=== PATIENT | male | born 1965 | race Caucasian/White ===

== ENCOUNTER 2017-04-05 20:54 | Emergency (ER) | payer OTHER ==
[2017-04-05 21:01] VITALS: BP 130/81
--- NOTE | 2017-04-05 22:01 | RAD ---
INDICATION: Left hip injury. COMPARISON: Comparison is made with a prior x-ray study of the left femur from June 14, 2015. TECHNIQUE: An AP view of the pelvis and frontal and lateral views of the left hip were obtained. FINDINGS: There are old fractures of the inferior pubic rami on both sides. No acute fracture is seen. 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 IMPRESSION: NO EVIDENCE FOR ACUTE FRACTURE, IF THE PATIENT'S SYMPTOMS PERSIST RECOMMEND FOLLOW-UP IMAGING.
--- NOTE | 2017-04-05 22:04 | RAD ---
INDICATION: Sacrococcygeal injury. COMPARISON: There are no prior studies available for comparison. TECHNIQUE: 3 views of the sacrococcygeal spine were obtained. FINDINGS: The vertebra are in normal alignment. No fracture is seen. There are old fractures of the right superior pubic ramus and both inferior pubic rami. IMPRESSION: NO EVIDENCE OF ACUTE FRACTURE.
[2017-04-05] MEDS ORDERED: HYDROcodone/ACETAMIN 5-325 MG* 1 TAB PO ONE (22:14)
--- NOTE | 2017-04-05 22:24 | UC ---
Hip/Pelvis Pain - HPI Summary HPI Summary: History of pelvic fracture and surgical repair. HAS BEEN VERY ACTIVE, HIT LEFT HIP HAS HAD RECURRING PAIN WORSE AT NIGHT. DOES NOT CURRENTLY HAVE ORTHOPEDIC DOCTOR. WOULD LIKE REFERRAL. - History Of Current Complaint Chief Complaint: UCLowerExtremity Stated Complaint: HIP/LOWER BACK PAIN Time Seen by Provider: 04/05/17 21:07 Hx Obtained From: Patient Onset/Duration: Gradual Onset, Lasting Days, Still Present Timing: Constant Severity Initially: Severe Severity Currently: Moderate Location: Discrete At: - LEFT HIP ,TAILBONE Character Of Pain: Dull, Aching Aggravating Factor(s): Movement Alleviating Factor(s): Nothing Associated Signs And Symptoms: Positive: Negative - Risk Factors Septic Arthritis Risk Factor: Negative - Allergies/Home Medications Allergies/Adverse Reactions: Allergies Allergy/AdvReac Type Severity Reaction Status Date / Time Bupropion [From Wellbutrin] Allergy Altered Verified 04/05/17 21:01 Mental Status PMH/Surg Hx/FS Hx/Imm Hx Previously Healthy: Yes - Surgical History Surgical History: Yes Surgery Procedure, Year, and Place: eye surgery - Social History Occupation: Employed Full-time Lives: With Family Alcohol Use: Occasionally Substance Use Type: None Smoking Status (MU): Heavy Every Day Tobacco Smoker Type: Cigarettes Household Exposure Type: Cigarettes - Immunization History Most Recent Influenza Vaccination: may 2015 Most Recent Tetanus Shot: may 2015 Most Recent Pneumonia Vaccination: unknown Review of Systems Constitutional: Negative Skin: Negative Eyes: Negative ENT: Negative Respiratory: Negative Cardiovascular: Negative Gastrointestinal: Negative Genitourinary: Negative Motor: Negative Neurovascular: Negative Musculoskeletal: Arthralgia, Myalgia Neurological: Negative Psychological: Negative All Other Systems Reviewed And Are Negative: Yes Physical Exam Triage Information Reviewed: Yes Appearance: Well-Appearing, No Pain Distress, Well-Nourished Vital Signs: Initial Vital Signs Temp 98.2 F 04/05/17 20:57 Pulse 86 04/05/17 20:57 Resp 12 04/05/17 20:57 BP 130/81 04/05/17 20:57 Pulse Ox 98 04/05/17 20:57 Vital Signs Reviewed: Yes Eye Exam: Normal ENT Exam: Normal Dental Exam: Normal Neck exam: Normal Neck: Positive: Supple, Nontender, No Lymphadenopathy Respiratory Exam: Normal Respiratory: Positive: Chest non-tender, Lungs clear, Normal breath sounds, No respiratory distress Cardiovascular Exam: Normal Cardiovascular: Positive: RRR, No Murmur, Pulses Normal, Brisk Capillary Refill Abdominal Exam: Normal Musculoskeletal: Positive: Strength Intact, ROM Intact, No Edema, Other: - TENDER TO PALPATION LEFT HIP Neurological Exam: Normal Psychological Exam: Normal Skin Exam: Normal Hip Injury Course/Dx - Differential Dx/Diagnosis Differential Diagnosis/HQI/PQRI: Contusion, Sprain, Strain Provider Diagnoses: ACUTE ON CHRONIC LEFT HIP PAIN; LOW BACK PAIN Discharge - Discharge Plan Condition: Stable Disposition: HOME Prescriptions: HYDROcodone/ACETAMIN 5-325 MG* [[place] 5-325 TAB*] 1 tab PO Q8H PRN #12 tab MDD THREE TABS PRN Reason: Pain Patient Education Materials: Arthralgia (ED), Hip Pain (ED), Hip Contusion (ED) Referrals: Hussein Keith MD [Primary Care Provider] - Deric Rashid MD [Medical Doctor] - Additional Instructions: PHYSICAL THERAPY REFERRAL: You have been prescribed physical therapy. Treatments may include stretching, exercise, application of heat or cold, and other modalities. After an injury, PT can reduce swelling and pain. In recovery, PT is used to restore mobility and strength. Your specific treatment goals are: Reduction of Swelling (EGS, US, ice as needed) __x___ Pain Reduction (EGS, US, ice as needed) ___x__ TENS Pack Fitting and Instruction Wound Hydrotherapy ___x__ Preservation of Mobility ___x__ Mandaen of Mobility ___x__ Strength Mandaen ____x_ Work or Sports Hardening This instruction sheet also serves as your PHYSICAL THERAPY REFERRAL! Please take it with you to the therapist, so he/she will be aware of your diagnosis and treatment plan. You may see the physical therapist of your choice for these treatments, but may wish to check with your insurance to be sure the provider you select is covered. It's important to see the doctor to whom you have been referred for follow up.
== END 2017-04-05 22:30 | disposition home or self-care (01) ==
LOC: UCEAST 20:54
DX: M25.552 Pain in left hip (principal); M54.5 Low back pain; F17.210 Nicotine dependence, cigarettes, uncomplicated
CPT/HCPCS: 72220; 99212; G0463

== ENCOUNTER 2017-12-09 06:25 | Day surgery (SDC) | payer BC ==
[~2017-12-09 06:25] MED LIST: Acetaminophen TAB* 325 MG PO PRN; Buffered Lidocaine 0.9% SYRIN* 5 ML/SYR SYRINGE INTRADERM ONE
[2017-12-09] MEDS ORDERED: Midazolam* 1 MG/ML 2 ML VIAL (2 MG) ONE ×2 (07:32→07:39)
[2017-12-09 08:21] VITALS: BP 130/79
--- NOTE | 2017-12-09 09:10 | OP ---
OPERATIVE REPORT: DATE OF OPERATION: 12/09/17 - [facility] DATE OF : 67 SURGEON: Marino Navarro MD ANESTHESIOLOGIST: Maria Ines Ahn MD ANESTHESIA: Monitored anesthesia care. PRE-OP DIAGNOSIS: Cataract, left eye. POST-OP DIAGNOSIS: Cataract, left eye. OPERATIVE PROCEDURE: Extracapsular cataract extraction of the left eye with intraocular lens implant. IMPLANTS: SN60WF 21.0 diopter lens to the left eye. COMPLICATIONS: None. DESCRIPTION OF PROCEDURE: The patient was given phenylephrine 2.5% and cyclopentolate 1% eye drops to the operative eye in the preoperative area. The patient was brought to the operating room where a time-out was taken to identify the correct patient, site, and side of surgery. The patient's left eye was prepped and draped in the usual sterile fashion with 5% Betadine. A second time-out was taken to verify the correct patient, site, and side of surgery, and correct lens selection. A lid speculum was placed to the left eye. A 1-mm paracentesis blade was used to make a clear corneal incision in the inferotemporal position. Preservative-free 1% lidocaine was injected into the anterior chamber. DisCoVisc was then injected into the anterior chamber. A 2.75-mm keratome blade was used to make a triplanar incision at the superotemporal position. A cystotome initiated a capsulorrhexis, which was completed with Utrata forceps in a continuous and curvilinear manner. The lens demonstrated excess movement during the stage, but no distinct clock hour of zonular dehiscence. Hydrodissection of the lens was performed with BSS on a cannula. The lens could be spun in the capsular bag. The phacoemulsification handpiece was used with a [id number] technique to remove the nucleus in its entirety with 32.24 CDE. The I/A handpiece then removed the residual cortical lens material. DisCoVisc was injected to inflate the capsular bag. The planned SN60WF 21.0 diopter lens was then injected into the capsular bag. The residual DisCoVisc was removed from the eye with the I/A handpiece. The corneal incisions were hydrated and no leaks occurred at physiologic pressure around 20 mmHg per palpation. The lid speculum was removed and drapes removed. Maxitrol ointment was placed on the surface of the operative eye. An adhesive patch and shield were then placed on the operative eye. The patient was taken to the postoperative area in stable condition. [id number]/[facility] #: [id number] SÁNCHEZ
[2017-12-09] MEDS ORDERED: Cyclopentolate 1% OPTH.SOL* 2 ML BTL ONE (16:23)
[2017-12-09] MEDS ORDERED: Neomycin/Polymy/Dex OPHTH.OIN* 3.5 GM ONE (16:23)
[2017-12-09] MEDS ORDERED: Povidone Iodine 5% OPTH* 30 ML BTL ONE (16:23)
[2017-12-09] MEDS ORDERED: Tetracaine 0.5% OPTH.SOL 4 ML* 1 DROP BTL ONE (16:23)
[2017-12-09] MEDS ORDERED: Tropicamide 1% OPTH.SOL* BTL ONE (16:23)
[2017-12-09] MEDS ORDERED: Lidocaine 1% MPF* 2 ML VIAL ONE (16:23)
[2017-12-09] MEDS ORDERED: Phenylephrine 2.5% OPTH.SOL* 2 ML BTL ONE (16:23)
[2017-12-09] MEDS ORDERED: acetaZOLAMIDE TAB* 250 MG ONE (16:23)
[2017-12-09] MEDS ORDERED: Ketorolac 0.5% OPHTH (NF) 0.5 % 5 ML BTL ONE (16:23)
== END 2017-12-09 08:31 | disposition home or self-care (01) ==
LOC: OREAST 06:25
PROVIDERS: ATTEND Student in an Organized Health Care Education/Training Program
DX: H25.12 Age-related nuclear cataract, left eye (principal); E11.3593 Type 2 diabetes mellitus with proliferative diabetic retinopathy without macular edema, bilateral; Z79.4 Long term (current) use of insulin; Z96.41 Presence of insulin pump (external) (internal); I10 Essential (primary) hypertension; F32.9 Major depressive disorder, single episode, unspecified
CPT/HCPCS: A9270-GY; J2250; V2632

== ENCOUNTER 2017-12-16 06:13 | Day surgery (SDC) | payer BC ==
[2017-12-16] MEDS ORDERED: fentaNYL* 50 MCG/ML 2 ML VIAL (100 MCG VIAL) ONE (07:13)
[2017-12-16] MEDS ORDERED: Midazolam* 1 MG/ML 2 ML VIAL (2 MG) ONE (07:14)
[2017-12-16 08:14] VITALS: BP 101/70
[2017-12-16] MEDS ORDERED: Ketorolac 0.5% OPHTH (NF) 0.5 % 5 ML BTL ONE (09:13)
[2017-12-16] MEDS ORDERED: Neomycin/Polymy/Dex OPHTH.OIN* 3.5 GM ONE (09:13)
[2017-12-16] MEDS ORDERED: Tropicamide 1% OPTH.SOL* BTL ONE (09:13)
[2017-12-16] MEDS ORDERED: Phenylephrine 2.5% OPTH.SOL* 2 ML BTL ONE (09:13)
[2017-12-16] MEDS ORDERED: Tetracaine 0.5% OPTH.SOL 4 ML* 1 DROP BTL ONE (09:13)
[2017-12-16] MEDS ORDERED: Povidone Iodine 5% OPTH* 30 ML BTL ONE (09:13)
[2017-12-16] MEDS ORDERED: acetaZOLAMIDE TAB* 250 MG ONE (09:13)
[2017-12-16] MEDS ORDERED: Lidocaine 1% MPF* 2 ML VIAL ONE (09:13)
[2017-12-16] MEDS ORDERED: Cyclopentolate 1% OPTH.SOL* 2 ML BTL ONE (09:13)
--- NOTE | 2017-12-16 11:24 | OP ---
DATE OF OPERATION: 12/16/17 - [facility] DATE OF : 67 SURGEON: Marino Navarro MD ANESTHESIA: Monitored anesthesia care. PRE-OP DIAGNOSIS: Cataract, right eye. POST-OP DIAGNOSIS: Cataract, right eye. OPERATIVE PROCEDURE: Extracapsular cataract extraction of the right eye with intraocular lens implant. IMPLANTS: SN60WF 20.5 Diopter lens to the right eye. COMPLICATIONS: None. DESCRIPTION OF PROCEDURE: The patient was given phenylephrine 2.5% and cyclopentolate 1% eye drops to the operative eye in the preoperative area. The patient was brought to the operating room where a time-out was taken to identify the correct patient, site and side of surgery. The patient's right eye was prepped and draped in the usual sterile fashion with 5% Betadine. A second time-out was taken to verify the correct patient, site and side of surgery and correct lens selection. A lid speculum was placed to the right eye. A 1-mm paracentesis blade was used to make a clear corneal incision in the superotemporal position. Preservative free 1% lidocaine was injected into the anterior chamber. DisCoVisc was then injected into the anterior chamber. A 2.75-mm keratome blade was used to make a triplanar incision at the inferotemporal position. A cystotome initiated a capsulorrhexis, which was completed with Utrata forceps in a continuous and curvilinear manner. Hydrodissection of the lens was performed with BSS on a cannula. The lens could be spun in the capsular bag. The phacoemulsification handpiece was used with a [id number] technique to remove the nucleus in its entirety with 15.98 CDE. The I/A handpiece then removed the residual cortical lens material. DisCoVisc was injected to inflate the capsular bag. The planned SN60WF 20.5 diopter lens was injected in the capsular bag. The residual DisCoVisc was removed from the eye with the I/A handpiece. The corneal incisions were hydrated and no leaks occurred at physiologic pressure around 20 mmHg per palpation. The lid speculum was removed and drapes removed. Maxitrol ointment was placed on the surface of the operative eye. An adhesive patch and shield was then placed in the operative eye. The patient was taken to the postoperative area in stable condition. [id number]/[facility] #: [id number] MTDD
== END 2017-12-16 08:18 | disposition home or self-care (01) ==
LOC: OREAST 06:13
PROVIDERS: ATTEND Student in an Organized Health Care Education/Training Program
DX: H25.11 Age-related nuclear cataract, right eye (principal); Z79.4 Long term (current) use of insulin; Z96.41 Presence of insulin pump (external) (internal); E11.3593 Type 2 diabetes mellitus with proliferative diabetic retinopathy without macular edema, bilateral; I10 Essential (primary) hypertension; F32.9 Major depressive disorder, single episode, unspecified
CPT/HCPCS: A9270-GY; J2250; J3010; V2632

== ENCOUNTER 2019-01-07 17:51 | Emergency (ER) | payer BC ==
--- NOTE | 2019-01-07 19:54 | ED ---
Laceration/Wound HPI - HPI Summary HPI Summary: 53-year-old male presents with laceration to his left index finger. States he accidentally cut his finger with a knife while cutting a ham sandwich. He was able to control bleeding prior to arrival using direct pressure. States he has full range of motion. Denies numbness or tingling. Tetanus is up-to-date. - History of Current Complaint Stated Complaint: I CUT MY FINGER, NEED SOME STITCHES PER PT Time Seen by Provider: 01/07/19 19:11 Hx Obtained From: Patient Pain Intensity: 2 - Allergy/Home Medications Allergies/Adverse Reactions: Allergies Allergy/AdvReac Type Severity Reaction Status Date / Time bupropion [From Wellbutrin] Allergy suicidal Verified 01/07/19 18:00 tendencies PMH/Surg Hx/FS Hx/Imm Hx Endocrine/Hematology History: Reports: Hx Diabetes Cardiovascular History: Reports: Hx Hypertension Denies: Hx Pacemaker/ICD Respiratory History: Denies: Hx Chronic Obstructive Pulmonary Disease (COPD) History: Denies: Hx Dialysis Musculoskeletal History: Reports: Hx Arthritis - SHOULDERS, BACK(LOWER), Hx Back Problems - degenerative dics Sensory History: Reports: Hx Cataracts - BILATERAL, Hx Contacts or Glasses Denies: Hx Hearing Aid Opthamlomology History: Reports: Hx Cataracts - BILATERAL, Hx Contacts or Glasses Neurological History: Reports: Hx Headaches - PATIENT REPORTS THOUGHT TO BE R/T CATARACTS Denies: Hx Dementia, Hx Seizures Psychiatric History: Reports: Hx Anxiety - HX OF, Hx Depression - Surgical History Surgery Procedure, Year, and Place: eye surgery Hx Anesthesia Reactions: No - Immunization History Date of Tetanus Vaccine: 2014 Infectious Disease History: No Infectious Disease History: Denies: Hx Hepatitis, Hx Shingles, Hx Tuberculosis, Traveled Outside the [place] in Last 30 Days - Family History Known Family History: Positive: Non-Contributory - Social History Occupation: Employed Full-time Lives: With Family Alcohol Use: Occasionally Substance Use Type: Reports: None Substance Use Comment - Amount & Last Used: OCCASIONAL Smoking Status (MU): Heavy Every Day Tobacco Smoker Type: Cigarettes Amount Used/How Often: 1 PPD X 30 YEARS Have You Smoked in the Last Year: Yes Review of Systems Constitutional: Negative Cardiovascular: Negative Respiratory: Negative Gastrointestinal: Negative Genitourinary: Negative Negative: Decreased ROM Skin: Other - See HPI All Other Systems Reviewed And Are Negative: Yes Physical Exam - Summary Physical Exam Summary: GENERAL APPEARANCE: Well developed, well nourished, alert and cooperative, and appears to be in no acute distress. CARDIAC: Normal S1 and S2. No S3, S4 or murmurs. Rhythm is regular. There is no peripheral edema, cyanosis or pallor. Extremities are warm and well perfused. Capillary refill is less than 2 seconds. Peripheral pulses intact. LUNGS: Clear to auscultation without rales, rhonchi, wheezing or diminished breath sounds. ABDOMEN: Positive bowel sounds. Soft, nondistended, nontender. No guarding or rebound. No masses or hepatosplenomegally. MUSKULOSKELETAL: Normal muscular development. Normal gait. EXTREMITIES: Superficial linear laceration to the left index finger over the PIP. Full ROM against resistance. Circulation and sensation intact. Bleeding controlled. SKIN: Skin normal color, texture and turgor. Triage Information Reviewed: Yes Vital Signs On Initial Exam: Initial Vitals Temp Pulse Resp BP Pulse Ox 98.3 F 90 15 139/79 96 01/07/19 17:57 01/07/19 17:57 01/07/19 17:57 01/07/19 17:57 01/07/19 17:57 Vital Signs Reviewed: Yes Procedures - Procedure Summary Procedure Summary: Procedure note: Laceration repair left index finger Informed consent was obtained before procedure started and the appropriate timeout was taken. The area was prepped and draped in the usual sterile fashion. Local anesthesia was achieved using 2.5 ml of lidocaine 1% without epinephrine. The wound was copiously irrigated. The wound margins were brought into good alignment and 6 interrupted sutures were placed using 5-0 Ethilon. Total length of wound after repair was 2.0 cm. Estimated blood loss was minimal. A dressing was applied to the area. Anticipatory guidance, as well as standard post-procedure care was discussed with patient. Return precautions are given. The patient tolerated the procedure well without complications. Patient is to follow up in 10-14 days for suture removal and evaluation of the laceration. Diagnostics - Vital Signs Vital Signs Temp Pulse Resp BP Pulse Ox 01/07/19 17:57 98.3 F 90 15 139/79 96 - Laboratory Lab Statement: Any lab studies that have been ordered have been reviewed, and results considered in the medical decision making process. Laceration Repair Course/Dx - Course Course Of Treatment: 53-year-old male presents with laceration to his left index finger. States he accidentally cut his finger with a knife while cutting a ham sandwich. He was able to control bleeding prior to arrival using direct pressure. States he has full range of motion. Denies numbness or tingling. Tetanus is up-to-date. Afebrile. Vital signs stable. Patient had a superficial linear laceration to the left index finger over the PIP. Full ROM against resistance. Circulation and sensation intact. Bleeding controlled. The laceration was repaired with 6 interrupted sutures using 5-0 Ethilon. Patient is to have the sutures removed in 10-14 days. Wound care, and anticipatory guidance, and warning symptoms are reviewed with the patient. Verbalizes understanding and agrees with plan of care. - Differential Dx Differental Diagnoses: Laceration - Clinical Impression Provider Diagnoses: Laceration of left index finger Discharge - Sign-Out/Discharge Documenting (check all that apply): Patient Departure Patient Received Moderate/Deep Sedation with Procedure: No - Discharge Plan Condition: Stable Disposition: HOME Patient Education Materials: Care For Your Stitches (ED), Finger Laceration (ED ) Referrals: Hussein Keith MD [Primary Care Provider] - Additional Instructions: Your laceration was repaired using sutures. Leave the dressing that was applied in the ER in place for the next 24 hours. You'll need to keep this clean and dry. After 24 hours he may remove the dressing and shower and wash her hands is normal. Be sure to clean the wound with a mild soap and water at least twice a day. Apply a small amount of antibiotic ointment to the wound and cover with a dressing. The dressing should be changed at least twice a day or any time it becomes wet or soiled. Take [id number] acetaminophen (Tylenol) or ibuprofen (Advil, Motrin) according to directions as needed for pain. You will need to follow-up with your primary care provider, convenient care, or return to the ER in 10-14 days to have the sutures removed. Watch for signs of infection including a temperature greater than 100.5 F, severe pain that is not managed with pain medication, redness that spreads, streaking up the arm, swelling in the finger, or pus draining from the wound. Seek immediate medical attention should any of these occur. - Billing Disposition and Condition Condition: STABLE Disposition: Home
[2019-01-07] MEDS ORDERED: Lidocaine 1% MPF* 2 ML VIAL INJ ONE (20:17)
[2019-01-07] MEDS ORDERED: Lidocaine 1%* 5 ML VIAL ONE (20:20)
[2019-01-07] MEDS ORDERED: Lidocaine 1%* 5 ML VIAL INJ ONE (21:05)
[2019-01-07 21:09] VITALS: BP 149/91
== END 2019-01-07 21:07 | disposition home or self-care (01) ==
LOC: ED 17:51
DX: S61.211A Laceration without foreign body of left index finger without damage to nail, initial encounter (principal); W26.0XXA Contact with knife, initial encounter; Y93.G1 Activity, food preparation and clean up; Y92.9 Unspecified place or not applicable; E11.9 Type 2 diabetes mellitus without complications; Z88.8 Allergy status to other drugs, medicaments and biological substances; F17.210 Nicotine dependence, cigarettes, uncomplicated
CPT/HCPCS: 12001; 99282

== ENCOUNTER 2019-07-05 10:39 | Emergency (ER) | payer BC ==
[2019-07-05 11:10] VITALS: BP 133/87
--- NOTE | 2019-07-05 12:04 | UC ---
Respiratory Complaint HPI - HPI Summary HPI Summary: Patient is a 53yo male presenting with complaint of chest congestion and cough x8 days. States it began as sore throat and nasal congestion and throughout last week progressed to his chest. Notes SOB, wheezing, and feeling of chest tightness intermittently throughout the day. Notes productive cough that is worse at night when lying down. States he has been taking otc cough and cold meds without relief. Denies sinus congestion today. Denies sore throat. Denies n /v/d. Denies fever, chills, and headaches. Patient is a smoker and states he has cut back since getting sick. - History of Current Complaint Chief Complaint: UCGeneralIllness Stated Complaint: COUGH Hx Obtained From: Patient Onset/Duration: Gradual Onset, Lasting Days Pain Intensity: 1 - Allergies/Home Medications Allergies/Adverse Reactions: Allergies Allergy/AdvReac Type Severity Reaction Status Date / Time bupropion [From Wellbutrin] Allergy suicidal Verified 07/05/19 11:05 tendencies PMH/Surg Hx/FS Hx/Imm Hx Previously Healthy: Yes Endocrine History: Diabetes - Surgical History Surgical History: Yes Surgery Procedure, Year, and Place: cataract surgery - Family History Known Family History: Positive: Non-Contributory - Social History Lives: With Family Alcohol Use: Rare Substance Use Type: Marijuana Substance Use Comment - Amount & Last Used: OCCASIONAL Smoking Status (MU): Heavy Every Day Tobacco Smoker Type: Cigarettes Amount Used/How Often: 1 PPD X 30 YEARS Have You Smoked in the Last Year: Yes Household Exposure Type: Cigarettes - Immunization History Most Recent Influenza Vaccination: may 2015 Most Recent Tetanus Shot: may 2015 Most Recent Pneumonia Vaccination: unknown Review of Systems All Other Systems Reviewed And Are Negative: Yes Constitutional: Positive: Negative ENT: Positive: Negative Respiratory: Positive: Shortness Of Breath, Cough - productive Cardiovascular: Positive: Negative Gastrointestinal: Positive: Negative Musculoskeletal: Positive: Negative Neurological: Positive: Negative Physical Exam Triage Information Reviewed: Yes Appearance: Well-Appearing, No Pain Distress, Well-Nourished Vital Signs: Initial Vital Signs Temp 98.8 F 07/05/19 11:06 Pulse 80 07/05/19 11:06 Resp 16 07/05/19 11:06 BP 133/87 07/05/19 11:06 Pulse Ox 98 07/05/19 11:06 Vital Signs Reviewed: Yes Eyes: Positive: Conjunctiva Clear ENT: Positive: Hearing grossly normal, Pharynx normal, TMs normal, Uvula midline. Negative: Nasal congestion, Nasal drainage Neck exam: Normal Neck: Positive: Supple, Nontender, No Lymphadenopathy Respiratory Exam: Normal Respiratory: Positive: Lungs clear, Normal breath sounds, No respiratory distress. Negative: Crackles, Rhonchi, Stridor, Wheezing Cardiovascular Exam: Normal Cardiovascular: Positive: RRR Neurological: Positive: Alert Psychological: Positive: Age Appropriate Behavior Skin Exam: Normal Respiratory Course/Dx - Course Course Of Treatment: Patient VS normal, clear lung sounds, well-appearing, and 98% O2 sat. Discussed bronchitis and viral illness with patient. Instructed to continue with symptomatic treatment including use of albuterol inhaler and decongestants. Patient voiced understanding agreed with treatment plan. - Differential Dx/Diagnosis Provider Diagnosis: Acute bronchitis Discharge ED - Sign-Out/Discharge Documenting (check all that apply): Patient Departure All imaging exams completed and their final reports reviewed: No Studies - Discharge Plan Condition: Stable Disposition: HOME Prescriptions: Albuterol HFA INHALER* [Ventolin HFA Inhaler*] 1 - 2 puff INH Q8H PRN #1 mdi PRN Reason: Sob/Wheezing Patient Education Materials: Acute Bronchitis (ED) Referrals: Hussein Keith MD [Primary Care Provider] - If Needed Additional Instructions: As discussed, your congestion is most likely caused by a virus. Use your albuterol inhaler as needed for shortness of breath and wheezing. You may take over the counter Mucinex to help reduce mucus production. You may also use over the counter nasal spray such as Flonase for symptomatic relief. A humidifier at night may also help relieve symptoms. Get plenty of rest and increase your fluid intake. Follow up with your primary care doctor if your symptoms worsen or do not begin to resolve within 7 days. - Billing Disposition and Condition Condition: STABLE Disposition: Home
== END 2019-07-05 12:15 | disposition home or self-care (01) ==
LOC: UCEAST 10:39
DX: J20.9 Acute bronchitis, unspecified (principal); R09.89 Other specified symptoms and signs involving the circulatory and respiratory systems; E11.9 Type 2 diabetes mellitus without complications; F17.210 Nicotine dependence, cigarettes, uncomplicated; R09.81 Nasal congestion; Z88.8 Allergy status to other drugs, medicaments and biological substances
CPT/HCPCS: 99212; G0463